=== PATIENT | male | born 1980 | race African-American/Black ===

== ENCOUNTER 2016-12-14 08:09 | Emergency (ER) | payer SELFPAY ==
[~2016-12-14] VITALS: Ht 170.2 cm; Wt 77.0 kg
[2016-12-14 08:10] VITALS: BP 137/88; PULSE 80; RESP 18; TEMP 97.5; O2SAT 100
[2016-12-14] MEDS ORDERED: RISP4TAB41 PO (08:54)
--- NOTE | 2016-12-14 09:06 | PD ---
HPI Chief Complaint: Medication Refill Request Time Seen by Provider: 09:06 Travel History International Travel<30 days: No Contact w/Intl Traveler<30days: No Traveled to known affect area: No History of Present Illness HPI 36-year-old male with a history of schizophrenia presents to the emergency department requesting a medication refill of Risperdal and for psychiatric resources. The patient states that he got off of a [employer] bus today from [facility]. States that in [place] he was receiving Risperdal injections once a month for schizophrenia. States that he has not received his Risperdal in 2 months. He was hoping that we can give him an injection of his Risperdal today. He denies any auditory or visual hallucinations. Denies suicidal or homicidal ideations. He is also here requesting information to get in touch with Evan [facility] to be able to set up outpatient follow-up. He denies any medical complaints. History Past Medical Histgory Narrative Medical Schizophrenia Social History Alcohol Use: No Tobacco Use: Yes Allergies-Medications (Allergen,Severity, Reaction): Coded Allergies: No Known Allergies (Unverified , 12/14/16) Reported Meds & Prescriptions Reported Meds & Active Scripts Active Reported Risperdal (Risperidone) 4 Mg Tab 5 Mg PO DAILY Review of Systems Except as stated in HPI: all other systems reviewed are Neg Physical Exam Narrative GENERAL: Well-nourished and well-developed pleasant male patient in no acute distress who is nontoxic appearing. SKIN: Warm and dry. HEAD: Normocephalic and atraumatic. EYES: No injection, drainage, or hyphema noted. PERRLA. EOMI. ENT: No nasal drainage noted. Oropharynx is clear. NECK: Supple and the trachea is midline. CARDIOVASCULAR: Regular rate and rhythm. RESPIRATORY: Breath sounds are equal bilaterally with no accessory muscle use, wheezing, rhonchi, or crackles. NEUROLOGICAL: Awake, alert, and oriented. Normal speech and gait. Cranial nerves are grossly intact. Data Data Last Documented VS Vital Signs Date Time Temp Pulse Resp B/P Pulse Ox O2 Delivery O2 Flow Rate FiO2 12/14/16 08:10 97.5 80 18 137/88 100 Room Air MDM Medical Screen Exam Complete: Yes Emergency Medical Condition: No Differential Diagnosis Schizophrenia versus medication refill versus medical screening exam Narrative Course 36-year-old male with a history of schizophrenia presents to the emergency department requesting a refill of Risperdal and for resources to [facility]. Patient is afebrile, vital signs are stable. Physical examination is unremarkable. No suicidal or homicidal ideations. There is no urgent or emergent intervention necessary at this time. [facility] and gave this to the patient. I discussed with them that I will not refill his psychiatric medications from the emergency department. A medical screening exam was performed: At the time of evaluation the presenting medical condition was determined not to be of an emergent nature. Patient was given options for additional community resources from which to obtain care. The Patient Has Been advised to seek medical attention for their presenting complaint. The patient has been advised to return to the ER at any time if an emergent condition develops. Primary Impression: Encounter for medical screening examination Disposition: EDGO-ED USE ONLY Condition: Stable Sindhu Moses Dec 14, 2016 09:06
--- NOTE | 2016-12-22 14:51 | PD.CONS ---
Provisional Diagnosis Admission Date [place] I. Major depressive disorder, recurrent, without psychosis [place] II. Deferred [place] III. Chest pain [place] IV. Lack of family and social support [place] V. 55 History of Present Illness Service Psychiatry Consult Requested By Primary Care Physician No Primary Care Physician HPI The patient is a 36-year-old man, homeless, single, unemployed , who recently moved to [place] from [place], with past psychiatric history of depression, multiple psychiatric hospitalizations, last hospitalization was 2 weeks ago and [facility] act, he has been on Risperdal 1 mg twice a day prescribing that institution, he has been seen in the ER a few times now for medication refill, he doesn't have any previous suicide attempts, medical history of hepatitis B and depression who presented with chest pain. The patient states that he took Risperdal as prescribed for him at [facility] for the first time last night. He believes that he began experiencing side effects from the medication including chest pain and suicidal thoughts. He states shortly after taking the pill he began having chest pain for a few hours after taking the medication. He describes the pain as "a little pressure". Patient was now seen and cleared by cardiology. He was consulted to psychiatry due to suicidal ideation, he was not Mariano acted he wanted to be evaluated by psychiatry voluntarily. On psychiatric evaluation today patient was found calm and cooperative and pleasant. He says that he has been doing okay, was a little scared yesterday with his chest pain, but today feels optimally. He denies depressive symptoms, he denies anhedonia, he denies hopelessness, he denies helplessness, he denies suicidal or homicidal ideation. Patient says that he is recently moved to [place], he came to the state "because [place] was too cold", he has been looking for a job and looking to settle in the city. He was hospitalized in a store management and about 2 weeks ago for 2 days due to depressive symptoms. He was discharged with an outpatient appointment which he has been compliant with, he was discharged on Risperdal 1 mg twice a day. At this moment the patient denies anxiety, denies perceptual disturbances , denies visual and auditory hallucinations. Patient is fully oriented 3. He reports the use of marijuana, 2 or 2 times per week, denies use of alcohol denies use of other illicit drugs. Review of Systems Eyes: DENIES: Blurred vision, Diplopia, Eye inflammation, Eye pain, Vision loss , Photosensitivity, Double Vision Ears, nose, mouth, throat: DENIES: Tinnitus, Hearing loss, Vertigo, Nasal discharge, Oral lesions, Throat pain, Hoarseness, Ear Pain, Running Nose, Epistaxis, Sinus Pain, Toothache, Odynophagia Respiratory: DENIES: Apneas, Cough, Snoring, Wheezing, Hemoptysis, Sputum production, Shortness of breath Cardiovascular: DENIES: Chest pain, Palpitations, Syncope, Dyspnea on Exertion , PND, Lower Extremity Edema, Orthopnea, Claudication Gastrointestinal: DENIES: Abdominal pain, Black stools, Bloody stools, Constipation, Diarrhea, Nausea, Vomiting, Difficulty Swallowing, Anorexia Musculoskeletal: DENIES: Joint pain, Muscle aches, Stiffness, Joint Swelling, Back pain, Neck pain Integumentary: DENIES: Abnormal pigmentation, Nail changes, Pruritus, Rash Hematologic/lymphatic: DENIES: Bruising, Lymphadenopathy Immunologic/allergic: DENIES: Eczema, Urticaria Neurologic: DENIES: Abnormal gait, Headache, Localized weakness, Paresthesias, Seizures, Speech Problems, Tremor, Poor Balance Psychiatric: DENIES: Anxiety, Confusion, Mood changes, Depression, Hallucinations, Agitation, Suicidal Ideation, Homicidal Ideation, Delusions Past Family Social History Coded Allergies: No Known Allergies (Unverified , 12/14/16) Reported Medications Risperidone (Risperdal)4 Mg Tab5 Mg PO DAILY #30 TAB Ref 0 12/14/16 Family History He denies Social History Patient was born and raised in [place], he just recently moved to [place] where he came from [place], he is homeless, single, unemployed, his highest level of education is seventh grade. Mental Status Examination Appearance man, with visible tattoos in his face, he looks younger for his stated age, poor hygiene, malodorous, calm, cooperative and pleasant Speech: Unremarkable Memory: Unremarkable Thought Process: Logical Thought Content: Unremarkable Hallucination Type: None Suicidal Ideation: No Previous Suicide Attempts: No Homicidal Ideation: No Previous Homicide Attempts: No Judgement: WNL Affect: Good Mood: Appropriate Motor Activity: Normal gait Assessment & Plan Problem List: (1) Adjustment disorder with depressed mood Assessment & Plan: At the moment of the psychiatric evaluation the patient does not present any objective or subjective symptomatology of depression, anxiety, chiki, perceptual disturbances. Patient is calm, cooperative pleasant , with a good sense of humor, logical coherent and relevant. He denies suicidal or homicidal ideation, he denies visual and auditory hallucinations. No gross cognitive impairment observed. Patient does not meet criteria for psychiatric admission at this moment. He can continue his psychiatric care as an outpatient is [facility]. Continue his Risperdal 1 mg twice a day as was prescribing outpatient. Support, motivation and psychoeducation provided. Consult appreciated. ICD Code: F43.21 Assessment & Plan Estimated LOS: Barrie Lang MD Dec 22, 2016 14:51
== END 2016-12-14 09:34 | disposition left against medical advice (07) ==
LOC: NEPB 08:09
DX: F20.9 Schizophrenia, unspecified (principal); Z72.0 Tobacco use; Z76.0 Encounter for issue of repeat prescription
CPT/HCPCS: 99281

== ENCOUNTER 2016-12-15 11:55 | Emergency (ER) | payer SELFPAY ==
[~2016-12-15] VITALS: Ht 167.6 cm; Wt 70.0 kg
[~2016-12-15 11:55] MED LIST: RISP4TAB41 PO
[2016-12-15 11:58] VITALS: BP 134/86; PULSE 70; RESP 16; TEMP 98.1; O2SAT 100
--- NOTE | 2016-12-15 16:14 | PD ---
HPI Chief Complaint: Psychiatric Symptoms Time Seen by Provider: 16:11 Travel History International Travel<30 days: No Contact w/Intl Traveler<30days: No Traveled to known affect area: No History of Present Illness HPI 36-year-old Afro-[place] male coming in with suicidal ideation with no specific plan. Patient states she's been off his Risperdal 5 mg for approximately 2 months. Patient states his grandmother recently he is having suicidal thoughts. Tearful and obviously scared. He states no pain or other medical issues at this time. He has no known drug allergies. [facility] Social History Alcohol Use: No Tobacco Use: Yes Substance Use: No (patient denies.) Allergies-Medications (Allergen,Severity, Reaction): Coded Allergies: No Known Allergies (Unverified , 12/14/16) Reported Meds & Prescriptions Reported Meds & Active Scripts Active Reported Risperdal (Risperidone) 4 Mg Tab 5 Mg PO DAILY Review of Systems Except as stated in HPI: all other systems reviewed are Neg General / Constitutional: No: Fever Eyes: No: Visual changes HENT: No: Headaches Cardiovascular: No: Chest Pain or Discomfort Respiratory: No: Shortness of Breath Gastrointestinal: No: Abdominal Pain Genitourinary: No: Dysuria Musculoskeletal: No: Pain Skin: No Rash Neurologic: No: Weakness Psychiatric: Positive: Depression, Suicidal Ideations, No: Anxiety, Disorder of Thought, Mood Disorder, Substance Abuse, Homicidal Ideation Endocrine: No: Polydipsia Hematologic/Lymphatic: No: Easy Bruising Physical Exam Narrative GENERAL: Patient appears in moderate distress. SKIN: Warm and dry. Normal color. Normal turgor. HEAD: Atraumatic. Normocephalic. Nontender. EYES: Pupils equal and round. No scleral icterus. No injection or drainage. ENT: No nasal bleeding or discharge. Mucous membranes pink and moist. No dental injury or itchy. Pharynx is normal. Airway is patent. NECK: Trachea midline. Supple nontender. CARDIOVASCULAR: Regular rate and rhythm. RESPIRATORY: No accessory muscle use. Clear to auscultation. Breath sounds equal bilaterally. GASTROINTESTINAL: Abdomen soft, non-tender, nondistended. Hepatic and splenic margins not palpable. MUSCULOSKELETAL: Extremities without clubbing, cyanosis, or edema. No obvious deformities. NEUROLOGICAL: Awake and alert. No obvious cranial nerve deficits. Motor grossly within normal limits. Five out of 5 muscle strength in the arms and legs. Normal speech. PSYCHIATRIC: Patient appears depressed and tearful. He is acting appropriate; insight and judgment normal. Data Data Last Documented VS Vital Signs Date Time Temp Pulse Resp B/P Pulse Ox O2 Delivery O2 Flow Rate FiO2 12/15/16 11:58 98.1 70 16 134/86 100 Room Air Orders Complete Blood Count With Diff (12/15/16 16:14) Comprehensive Metabolic Panel (12/15/16 16:14) Drug Screen, Random Urine (12/15/16 16:14) Alcohol (Ethanol) (12/15/16 16:14) Psych Screen (12/15/16 16:14) Diet Regular Basic (12/15/16 Dinner) MDM Medical Decision Making Medical Screen Exam Complete: Yes Emergency Medical Condition: Yes Differential Diagnosis Depression. Suicidal ideation. Mariano act. Narrative Course Patient is felt to be a danger to himself, and will be Mariano acted. Patient is medically stable in appearance by exam. Labs ordered per protocol including CBC, CMP, urine drug screen, and serum alcohol level. Medial is ordered for the patient. Diagnosis Primary Impression: Suicidal ideation Additional Impression: Medical clearance for psychiatric admission Condition: Stable Rudolph Hernandez Dec 15, 2016 16:14
[2016-12-15 18:30] VITALS: BP 131/75
[2016-12-15 19:03] LABS: AUTOMATED NEUTROPHIL # 3.3 TH/MM3 (1.8-7.7); BASOPHIL % 0.2 % (0.0-2.0); EOSINOPHIL # 0.1 TH/MM3 (0-0.4); EOSINOPHIL % 1.3 % (0.0-4.0); HEMATOCRIT 34.6 % (39.0-51.0); HEMO FLAGS DIFF FINAL; LYMPH % 30.8 % (9.0-44.0); LYMPHOCYTE # 1.7 TH/MM3 (1.0-4.8); MEAN CELL VOLUME 83.5 FL (80.0-100.0); MEAN CORPUSCULAR HEMOGLOBIN 28.5 PG (27.0-34.0); MEAN CORPUSCULAR HGB CONC 34.1 % (32.0-36.0); MONO % 9.3 % (0.0-8.0); NEUT % 58.4 % (16.0-70.0); PLATELET COUNT 244 TH/MM3 (150-450); RED BLOOD COUNT 4.14 MIL/MM3 (4.50-5.90); RED CELL DISTRIBUTION WIDTH 14.4 % (11.6-17.2); WHITE BLOOD COUNT 5.6 TH/MM3 (4.0-11.0)
[2016-12-15 19:20] LABS: AMPHETAMINE, URINE NEG (NEG); BARBITURATES, URINE NEG (NEG); COCAINE, URINE POS (NEG)
[2016-12-15 19:29] LABS: ANION GAP 8 MEQ/L (5-15); AST (GOT) 42 U/L (15-37); BICARBONATE 25.6 MEQ/L (21.0-32.0); BLOOD UREA NITROGEN 12 MG/DL (7-18); CHLORIDE 102 MEQ/L (98-107); GLOMERULAR FILTRATION RATE 124 ML/MIN (>89); POTASSIUM 4.2 MEQ/L (3.5-5.1); SODIUM (NA) 136 MEQ/L (136-145)
[2016-12-15 19:34] LABS: ALKALINE PHOSPHATASE 77 U/L (45-117); ALT (GPT) 38 U/L (12-78); TOTAL BILIRUBIN ADULT 0.5 MG/DL (0.2-1.0)
== END 2016-12-15 21:06 ==
LOC: NEPB 11:55 → NEPJ 21:06
DX: Z02.89 Encounter for other administrative examinations (principal); R45.851 Suicidal ideations; Z72.0 Tobacco use
CPT/HCPCS: 80053; 80307; 80320; 85025; 99285

== ENCOUNTER 2016-12-20 19:54 | Observation (INO) | payer MEDICAID ==
[~2016-12-20] VITALS: Ht 167.6 cm; Wt 70.7 kg
[2016-12-20 19:59] VITALS: BP 130/76; PULSE 84; RESP 20; TEMP 97.2; O2SAT 98
[2016-12-20 20:07] VITALS: RESP 20
[2016-12-20] MEDS ORDERED: ASPIRIN 81 MG CHEW TAB PO ONE (20:15)
[2016-12-20] MEDS ORDERED: SODIUM CHLORIDE 0.9% FLUSH 5 ML FLUSH IVF PRN (20:15)
--- NOTE | 2016-12-20 20:17 | PD ---
HPI Chief Complaint: Chest Pain Time Seen by Provider: 20:00 Travel History International Travel<30 days: No Contact w/Intl Traveler<30days: No Traveled to known affect area: No History of Present Illness HPI This is a 36 year old male who presents to the emergency department with chest pain, starting as a dull ache in the middle of his chest, radiating down to the left side of his chest associated with some shortness of breath and nausea, constant for several hours. Pain is worse with deep breaths. He denies any diaphoresis. He says this started immediately after taking his risperdal. He also reports some diarrhea and abdominal discomfort over the past several days. the patient was here several days ago with suicidal thoughts and was sent to [facility]. He says every time he has taken the Risperdal he hasn't felt right. Denies cocaine use. [facility] Past Medical History Narrative Medical Hepatitis B Uses marijuana Diminished Hearing: No Hepatitis: Yes (b) Past Surgical History Surgical History: No Previous Surgery Social History Alcohol Use: No Tobacco Use: Yes Substance Use: No (marijuana) Allergies-Medications (Allergen,Severity, Reaction): Coded Allergies: No Known Allergies (Unverified , 12/14/16) Reported Meds & Prescriptions Reported Meds & Active Scripts Active Reported Risperdal (Risperidone) 4 Mg Tab 5 Mg PO DAILY Review of Systems Except as stated in HPI: all other systems reviewed are Neg Physical Exam Narrative GENERAL:Well appearing, no acute distress SKIN: Warm and dry. HEAD: Atraumatic. Normocephalic. EYES: Pupils equal and round. No injection or drainage. ENT: Moist mucous membranes NECK: Trachea midline. CARDIOVASCULAR: Regular rate and rhythm. No murmur appreciated. RESPIRATORY: Clear to auscultation. Breath sounds equal bilaterally. GASTROINTESTINAL: Abdomen soft, non-tender, nondistended. MUSCULOSKELETAL: No obvious deformities. NEUROLOGICAL: Awake and alert. No obvious cranial nerve deficits. Moving all extremities. PSYCHIATRIC: Appropriate mood and affect; insight and judgment normal. Data Data Last Documented VS Vital Signs Date Time Temp Pulse Resp B/P Pulse Ox O2 Delivery O2 Flow Rate FiO2 12/20/16 20:37 122/79 120/71 12/20/16 20:07 100 Nasal Cannula 2 12/20/16 20:07 20 12/20/16 19:59 97.2 84 Orders Electrocardiogram (12/20/16 20:04) Complete Blood Count With Diff (12/20/16 20:04) Comprehensive Metabolic Panel (12/20/16 20:04) Magnesium (Mg) (12/20/16 20:04) Prothrombin Time / Inr (Pt) (12/20/16 20:04) Act Partial Throm Time (Ptt) (12/20/16 20:04) Troponin I (12/20/16 20:04) Chest, Single Ap (12/20/16 20:04) Ecg Monitoring (12/20/16 20:04) Bilateral Bp Monitoring (12/20/16 20:04) Iv Access Insert/Monitor (12/20/16 20:04) Oximetry (12/20/16 20:04) Oxygen Administration (12/20/16 20:04) Aspirin Chew (Aspirin Chew) (12/20/16 20:15) Sodium Chloride 0.9% Flush (Ns Flush) (12/20/16 20:15) Alcohol (Ethanol) (12/20/16 20:04) Drug Screen, Random Urine (12/20/16 20:04) ^ Sitter (12/20/16 20:27) Labs Laboratory Tests Test 12/20/16 20:10 White Blood Count 6.6 TH/MM3 Red Blood Count 3.79 MIL/MM3 Hemoglobin 11.0 GM/DL Hematocrit 31.8 % Mean Corpuscular Volume 83.9 FL Mean Corpuscular Hemoglobin 29.0 PG Mean Corpuscular Hemoglobin 34.5 % Concent Red Cell Distribution Width 13.8 % Platelet Count 344 TH/MM3 Mean Platelet Volume 8.0 FL Neutrophils (%) (Auto) 57.5 % Lymphocytes (%) (Auto) 28.7 % Monocytes (%) (Auto) 12.2 % Eosinophils (%) (Auto) 1.3 % Basophils (%) (Auto) 0.3 % Neutrophils # (Auto) 3.8 TH/MM3 Lymphocytes # (Auto) 1.9 TH/MM3 Monocytes # (Auto) 0.8 TH/MM3 Eosinophils # (Auto) 0.1 TH/MM3 Basophils # (Auto) 0.0 TH/MM3 CBC Comment DIFF FINAL Differential Comment Prothrombin Time 10.9 SEC Prothromb Time International 1.0 RATIO Ratio Activated Partial 26.1 SEC Thromboplast Time Sodium Level 140 MEQ/L Potassium Level 3.7 MEQ/L Chloride Level 107 MEQ/L Carbon Dioxide Level 26.9 MEQ/L Anion Gap 6 MEQ/L Blood Urea Nitrogen 11 MG/DL Creatinine 1.17 MG/DL Estimat Glomerular Filtration 86 ML/MIN Rate Random Glucose 85 MG/DL Calcium Level 8.4 MG/DL Magnesium Level 1.9 MG/DL Total Bilirubin 0.2 MG/DL Aspartate Amino Transf 21 U/L (AST/SGOT) Alanine Aminotransferase 30 U/L (ALT/SGPT) Alkaline Phosphatase 79 U/L Troponin I LESS THAN 0.02 NG/ML Total Protein 7.5 GM/DL Albumin 3.6 GM/DL Ethyl Alcohol Level 7 MG/DL [facility] Medical Decision Making Medical Screen Exam Complete: Yes Emergency Medical Condition: Yes Interpretation(s) Afebrile, no tachycardia, normotensive Mild anemia Monocytic shift troponin normal EKG: Normal sinus rhythm, isolated ST elevation in lead V3 with biphasic T-wave and J-point elevation, marked amplitude in the lateral leads consistent with LVH , deep T-wave inversion in V4, no reciprocal ischemic changes Differential Diagnosis Cocaine chest pain, acute coronary syndrome, pericarditis, cardiomyopathy, depression substance induced mood disorder Narrative Course This is a 36-year-old male who presents the emergency department reporting chest pain that started today after he took his Risperdal. Patient's description of his chest pain is fairly benign. It's mostly pleuritic in its absent here in the emergency department. He was placed on a monitor and an IV was established. EKG demonstrates significant abnormality with LVH and an abnormal ST segment in V3 with abnormal T waves in V3 and V4. We don't have any prior EKGs. Labs were obtained which were all reassuring. I don't think the patient's EKG meet STEMI criteria and additionally his clinical history is not consistent with a myocardial infarction however his EKG concerns me for underlying cardiomyopathy. I think it's reasonable to continue serial troponins on the patient and consider an echo as well as psychiatric consultation as he was just recently discharged from [facility] and continues to report hallucinations and suicidal thoughts. Diagnosis Primary Impression: Chest pain Qualified Code: R07.9 - Chest pain, unspecified type Additional Impression: Depression Qualified Code: F32.9 - Depression, unspecified depression type Admitting Information Admitting Physician Requests: Aisha Mckinnon MD Dec 20, 2016 20:17
[2016-12-20 20:37] VITALS: BP_SYST 120; BP_SYST 122; BP_DIAS 71; BP_DIAS 79
[2016-12-20 21:02] LABS: APTT (PATIENT) 26.1 SEC (24.3-30.1); PROTHROMBIN TIME - PATIENT 10.9 SEC (9.8-11.6)
[2016-12-20 21:11] LABS: AUTOMATED NEUTROPHIL # 3.8 TH/MM3 (1.8-7.7); BASOPHIL % 0.3 % (0.0-2.0); EOSINOPHIL # 0.1 TH/MM3 (0-0.4); EOSINOPHIL % 1.3 % (0.0-4.0); HEMATOCRIT 31.8 % (39.0-51.0); HEMO FLAGS DIFF FINAL; LYMPH % 28.7 % (9.0-44.0); LYMPHOCYTE # 1.9 TH/MM3 (1.0-4.8); MEAN CELL VOLUME 83.9 FL (80.0-100.0); MEAN CORPUSCULAR HGB CONC 34.5 % (32.0-36.0); MONO % 12.2 % (0.0-8.0); NEUT % 57.5 % (16.0-70.0); PLATELET COUNT 344 TH/MM3 (150-450); RED BLOOD COUNT 3.79 MIL/MM3 (4.50-5.90); RED CELL DISTRIBUTION WIDTH 13.8 % (11.6-17.2); WHITE BLOOD COUNT 6.6 TH/MM3 (4.0-11.0)
[2016-12-20 21:39] LABS: ALKALINE PHOSPHATASE 79 U/L (45-117); ALT (GPT) 30 U/L (12-78); ANION GAP 6 MEQ/L (5-15); AST (GOT) 21 U/L (15-37); BICARBONATE 26.9 MEQ/L (21.0-32.0); BLOOD UREA NITROGEN 11 MG/DL (7-18); CHLORIDE 107 MEQ/L (98-107); GLOMERULAR FILTRATION RATE 86 ML/MIN (>89); MAGNESIUM 1.9 MG/DL (1.5-2.5); POTASSIUM 3.7 MEQ/L (3.5-5.1); SODIUM (NA) 140 MEQ/L (136-145); TOTAL BILIRUBIN ADULT 0.2 MG/DL (0.2-1.0)
--- NOTE | 2016-12-20 21:47 | RADRPT ---
EXAM DATE/TIME: 12/20/2016 18:39 [place] COMPARISON: No previous studies available for comparison. INDICATIONS : Chest pain starting today MEDICAL HISTORY : None. SURGICAL HISTORY : None. ENCOUNTER: Initial ACUITY: 1 day PAIN SCORE: 10/10 LOCATION: Center of chest FINDINGS: A single view of the chest demonstrates the lungs to be symmetrically aerated without evidence of mas s, infiltrate or effusion. The cardiomediastinal contours are unremarkable. Osseous structures are intact. CONCLUSION: 1. No active disease. Calcified granulomata in the lungs. Magdiel Sauceda MD on December 20, 2016 at 21:45 Board Certified Radiologist. This report was verified electronically.
[2016-12-20 23:15] VITALS: BP 105/59; PULSE 76; RESP 16
[2016-12-21] VITALS (7 sets, daily range): BP systolic 110–129; BP diastolic 55–97; PULSE 51–71; RESP 16–20; TEMP 97.7–98.2; O2SAT 97–100
[2016-12-21] MEDS ORDERED: ACETAMINOPHEN 325 MG TAB PO PRN
[2016-12-21] MEDS ORDERED: SENNOSIDES 8.6 MG TAB PO PRN
[2016-12-21] MEDS ORDERED: ONDANSETRON HCL 4 MG/2 ML VIAL IVP PRN
[2016-12-21] MEDS ORDERED: NALOXONE HCL 0.4 MG/ML AMP IV PRN
[2016-12-21] MEDS ORDERED: SODIUM CHLORIDE 0.9% FLUSH 5 ML FLUSH FLUSH PRN
[2016-12-21 02:22] LABS: CREATINE KINASE 201 U/L (39-308)
[2016-12-21] MEDS: SODIUM CHLOR 0.9% 1000 ML INJ 1,000 ML IV SCH ×3 (03:29→14:06)
[2016-12-21] MEDS ORDERED: ACETAMINOPHEN 500 MG CPLT PO PRN (03:30)
[2016-12-21] MEDS ORDERED: MORPHINE SULFATE 4 MG/ML INJ IV PRN (03:30)
[2016-12-21] MEDS ORDERED: ALPRAZolam 0.25 MG TAB PO PRN (03:30)
[2016-12-21] MEDS ORDERED: ACETAMINOPHEN/HYDROcodone 325 MG/7.5 MG TAB PO PRN (03:30)
[2016-12-21] MEDS ORDERED: SODIUM CHLORIDE 0.9% FLUSH 5 ML FLUSH IV PRN (03:30)
[2016-12-21] MEDS ORDERED: MORPHINE SULFATE 8 MG/ML INJ IV PUSH PRN (03:30)
[2016-12-21 04:42] LABS: AUTOMATED NEUTROPHIL # 3.4 TH/MM3 (1.8-7.7); BASOPHIL % 0.3 % (0.0-2.0); EOSINOPHIL # 0.1 TH/MM3 (0-0.4); EOSINOPHIL % 1.6 % (0.0-4.0); HEMATOCRIT 32.8 % (39.0-51.0); HEMO FLAGS DIFF FINAL; LYMPH % 32.8 % (9.0-44.0); LYMPHOCYTE # 2.2 TH/MM3 (1.0-4.8); MEAN CELL VOLUME 84.3 FL (80.0-100.0); MEAN CORPUSCULAR HEMOGLOBIN 28.8 PG (27.0-34.0); MEAN CORPUSCULAR HGB CONC 34.2 % (32.0-36.0); MONO % 14.5 % (0.0-8.0); NEUT % 50.8 % (16.0-70.0); PLATELET COUNT 326 TH/MM3 (150-450); RED BLOOD COUNT 3.89 MIL/MM3 (4.50-5.90); WHITE BLOOD COUNT 6.6 TH/MM3 (4.0-11.0)
[2016-12-21 04:50] LABS: ANION GAP 6 MEQ/L (5-15); BICARBONATE 26.8 MEQ/L (21.0-32.0); BLOOD UREA NITROGEN 10 MG/DL (7-18); CHLORIDE 108 MEQ/L (98-107); GLOMERULAR FILTRATION RATE 109 ML/MIN (>89); POTASSIUM 3.9 MEQ/L (3.5-5.1); SODIUM (NA) 141 MEQ/L (136-145)
--- NOTE | 2016-12-21 04:54 | EKG ---
Date Performed: 12/20/2016 Time Performed: 19:59:19 PTAGE: 36 years EKG: Sinus rhythm WITH SHORT RI INTERVAL VOLTAGE CRITERIA FOR LVH Nonspecific T wave changes NO PREVIOUS TRACING DOCTOR: Jung Leiva Interpretating Date/Time 12/21/2016 04:53:46
[2016-12-21] MEDS: HEPARIN SODIUM - SQ 10,000 UNITS/ML VIAL SQ SCH ×2 (06:10→14:05)
--- NOTE | 2016-12-21 08:07 | EKG ---
Date Performed: 12/21/2016 Time Performed: 02:51:15 PTAGE: 36 years EKG: SINUS BRADYCARDIA POSSIBLE LEFT VENTRICULAR HYPERTROPHY Possible early repolarization Nonsp ecific ST-T wave changes ABNORMAL ECG NO SIGNIFICANT CHANGE FROM PRIOR ELECTROCARDIOGRAM. PREVIOUS TRACING : 12/20/2016 20.32 DOCTOR: Jung Leiva Interpretating Date/Time 12/21/2016 08:06:28
--- NOTE | 2016-12-21 08:17 | EKG ---
Date Performed: 12/20/2016 Time Performed: 20:32:53 PTAGE: 36 years EKG: Sinus rhythm VOLTAGE CRITERIA FOR LVH Possible early repolarization Nonspecific ST-T wave changes ABNORMAL ECG NO SIGNIFICANT CHANGE FROM PRIOR ELECTROCARDIOGRAM. PREVIOUS TRACING : 12/20/2016 19.59 DOCTOR: Jung Leiva Interpretating Date/Time 12/21/2016 08:16:22
[2016-12-21] MEDS: SODIUM CHLORIDE 0.9% FLUSH 5 ML FLUSH IV SCH ×2 (09:00→21:00)
[2016-12-21] MEDS ORDERED: SODIUM CHLORIDE 0.9% FLUSH 5 ML FLUSH FLUSH SCH (09:00)
[2016-12-21] MEDS ORDERED: ENOXAPARIN SODIUM 40 MG/0.4 ML SYRINGE SQ SCH (09:00)
[2016-12-21 10:06] LABS: AMPHETAMINE, URINE NEG (NEG); BARBITURATES, URINE NEG (NEG); COCAINE, URINE POS (NEG)
[2016-12-21] MEDS: ASPIRIN 325 MG TAB PO SCH (10:34)
[2016-12-21] MEDS: PANTOPRAZOLE SOD 40 MG DELAYED RELEASE TAB PO SCH (10:34)
[2016-12-21 11:06] LABS: CREATINE KINASE 172 U/L (39-308)
--- NOTE | 2016-12-21 13:38 | EKG ---
Date Performed: 12/21/2016 Time Performed: 10:29:36 PTAGE: 36 years EKG: SINUS BRADYCARDIA VOLTAGE CRITERIA FOR LVH Probable early repolarization ABNORMAL ECG NO SI GNIFICANT CHANGE FROM PRIOR ELECTROCARDIOGRAM. PREVIOUS TRACING : 12/21/2016 02.51 DOCTOR: Jung Leiva Interpretating Date/Time 12/21/2016 13:36:56
--- NOTE | 2016-12-21 14:51 | HHI.HP ---
[facility] Service [facility] Primary Care Physician No Primary Care Physician Admission Diagnosis chest pain,depression Diagnoses: Chief Complaint: Chest pain Travel History International Travel<30 Days: No Contact w/Intl Traveler <30 Da: No Traveled to Known Affected Are: No History of Present Illness 36-year-old male with past medical history of hepatitis B and depression who presented with chest pain. The patient states that he took Risperdal as prescribed for him at [facility] for the first time last night. He believes that he began experiencing side effects from the medication including chest pain and suicidal thoughts. He states shortly after taking the pill he began having chest pain for a few hours after taking the medication. He describes the pain as "a little pressure". He had associated shortness of breath. The pain did not radiate and he did not have any nausea or diaphoresis. He states the pain resolved spontaneously and has not recurred. He does continue to feel suicidal thoughts. He is agreeable to stay to talk to a psychiatrist. He denies any vomiting, fever, chills, cough, abdominal pain. Review of Systems Other 10 point review of systems performed and was negative except as stated in history of present illness Past Family Social History Past Medical History Hepatitis B Depression Past Surgical History None Reported Medications Risperdal Allergies: Coded Allergies: No Known Allergies (Unverified , 12/14/16) Active Ordered Medications Current Medications Medications (Trade) Dose Ordered Sig/Alex Route Start Time Stop Time Status Last Admin (Tylenol) 650 mg Q4H PRN PO 12/21/16 00:00 (Zofran Inj) 4 mg Q6H PRN IVP 12/21/16 00:00 (Senokot) 17.2 mg Q12H PRN PO 12/21/16 00:00 (Lovenox Inj) 40 mg Q24H SQ 12/21/16 09:00 12/21/16 10:34 Naloxone HCl 0.4 mg 0.4 mg UNSCH PRN IV 12/21/16 00:00 (NS 1000 ml Inj) 1,000 ml @ 100 mls/hr Q10H IV 12/21/16 03:29 12/21/16 14:06 (NS Flush) 2 ml BID IV 12/21/16 09:00 (NS Flush) 2 ml UNSCH PRN IV 12/21/16 03:30 (Aspirin) 325 mg DAILY PO 12/21/16 09:00 12/21/16 10:34 (Tylenol) 500 mg Q4H PRN PO 12/21/16 03:30 ([place] 7.5-325 Mg) 1 tab Q4H PRN PO 12/21/16 03:30 (Morphine Inj) 2 mg Q5M PRN IV 12/21/16 03:30 (Morphine Inj) 5 mg Q10M PRN IV PUSH 12/21/16 03:30 (Protonix) 40 mg DAILY PO 12/21/16 09:00 12/21/16 10:34 (Xanax) 0.25 mg TID PRN PO 12/21/16 03:30 (Heparin Inj) 5,000 units Q8HR SQ 12/21/16 06:00 12/21/16 14:05 Family History Reviewed, no family history pertinent current chief complaint Social History Smokes about 5 cigarettes daily Denies any alcohol use Smokes marijuana about twice a week Physical Exam Vital Signs Vital Signs Date Time Temp Pulse Resp B/P Pulse Ox O2 Delivery O2 Flow Rate FiO2 12/21/16 10:34 55 18 117/75 97 Nasal Cannula 2 12/21/16 07:35 100 12/21/16 07:33 51 16 122/56 100 12/21/16 04:00 53 16 127/97 97 Room Air 12/20/16 23:15 76 16 105/59 Room Air 12/20/16 20:37 122/79 120/71 12/20/16 20:07 100 Nasal Cannula 2 12/20/16 20:07 20 12/20/16 19:59 97.2 84 20 130/76 98 Physical Exam GENERAL: Well-developed well-nourished. In no acute distress. SKIN: Warm and dry. No lesions noted. HEENT: Normocephalic. Pupils equal and round. Mucous membranes pink and moist. CARDIOVASCULAR: Regular rate and rhythm. No murmur appreciated. RESPIRATORY: No accessory muscle use. Clear to auscultation. Breath sounds equal bilaterally. GASTROINTESTINAL: Abdomen soft, non-tender, nondistended. Bowel sounds x4. MUSCULOSKELETAL: No obvious deformities. No clubbing or cyanosis. No edema. NEUROLOGICAL: Awake and alert. No focal neurological deficits. Moves upper and lower extremities spontaneously. Normal speech. PSYCHIATRIC: Appropriate mood and affect; insight and judgment normal. Expresses SI. Laboratory Laboratory Tests Test 12/20/16 12/21/16 12/21/16 12/21/16 20:10 01:55 04:23 09:30 White Blood Count 6.6 6.6 Red Blood Count 3.79 3.89 Hemoglobin 11.0 11.2 Hematocrit 31.8 32.8 Mean Corpuscular Volume 83.9 84.3 Mean Corpuscular Hemoglobin 29.0 28.8 Mean Corpuscular Hemoglobin 34.5 34.2 Concent Red Cell Distribution Width 13.8 14.0 Platelet Count 344 326 Mean Platelet Volume 8.0 7.7 Neutrophils (%) (Auto) 57.5 50.8 Lymphocytes (%) (Auto) 28.7 32.8 Monocytes (%) (Auto) 12.2 14.5 Eosinophils (%) (Auto) 1.3 1.6 Basophils (%) (Auto) 0.3 0.3 Neutrophils # (Auto) 3.8 3.4 Lymphocytes # (Auto) 1.9 2.2 Monocytes # (Auto) 0.8 1.0 Eosinophils # (Auto) 0.1 0.1 Basophils # (Auto) 0.0 0.0 CBC Comment DIFF FINAL DIFF FINAL Differential Comment Prothrombin Time 10.9 Prothromb Time International 1.0 Ratio Activated Partial 26.1 Thromboplast Time Sodium Level 140 141 Potassium Level 3.7 3.9 Chloride Level 107 108 Carbon Dioxide Level 26.9 26.8 Anion Gap 6 6 Blood Urea Nitrogen 11 10 Creatinine 1.17 0.95 Estimat Glomerular Filtration 86 109 Rate Random Glucose 85 93 Calcium Level 8.4 8.6 Magnesium Level 1.9 Total Bilirubin 0.2 Aspartate Amino Transf 21 (AST/SGOT) Alanine Aminotransferase 30 (ALT/SGPT) Alkaline Phosphatase 79 Troponin I LESS THAN 0.02 LESS THAN 0.02 LESS THAN 0.02 Total Protein 7.5 Albumin 3.6 Ethyl Alcohol Level 7 Total Creatine Kinase 201 Urine Opiates Screen NEG Urine Barbiturates Screen NEG Urine Amphetamines Screen NEG Urine Benzodiazepines Screen NEG Urine Cocaine Screen POS Urine Cannabinoids Screen POS Test 12/21/16 12/21/16 09:37 10:26 Total Creatine Kinase 172 Troponin I LESS THAN 0.02 LESS THAN 0.02 Result Diagram: 12/21/16 0423 12/21/163 Imaging Last Impressions Chest X-Ray 12/20/162003 Signed Impressions: Service Date/Time: Tuesday, December 20, 2016 18:39 - CONCLUSION: 1. No active disease. Calcified granulomata in the lungs. Magdiel Sauceda MD Assessment and Plan Problem List: (1) Chest pain ICD Code: R07.9 Status: Acute (2) Depression ICD Code: F32.9 Status: Acute (3) Suicidal ideation ICD Code: R45.851 Status: Acute Assessment and Plan 36-year-old male with past medical history of hepatitis B and depression who presented with chest pain Atypical chest pain: Doubt ACS. Troponin negative 5. EKG personally reviewed , shows LVH and nonspecific ST changes and anterior lateral leads. Possible underlying cardiomyopathy. Check echocardiogram. Consult cardiology. Patient started on aspirin. No beta vannessa with bradycardia. Suicidal ideation: Possible side effects from Risperdal, hold for now. Consult psychiatry. Patient agrees to voluntarily stay for psychiatric evaluation, no need to Mariano act for now, but patient referred to leave prior to psychiatry evaluation would need to reconsider that. DVT prophylaxis: SCDs Written by Dalton Connelly, acting as scribe for Dr. Ruiz on 12/21/16 at 14:49. The documentation accurately reflects the work performed [id number] by me Dr. Ruiz on 12/21/16 at 14:49. Discussed Condition With Patient, ED RN Problem Qualifiers (1) Chest pain: Qualified Code: R07.9 - Chest pain, unspecified type (2) Depression: Qualified Code: F32.9 - Depression, unspecified depression type Dalton Connelly Dec 21, 2016 14:51 Camelia Ruiz MD Dec 21, 2016 15:47
[2016-12-21] MEDS ORDERED: METOPROLOL TARTRATE 5 MG/5 ML VIAL IV PUSH PRN (16:45)
--- NOTE | 2016-12-21 18:09 | MB ---
cc: SHAD MOULTON MD DATE OF CONSULTATION 12/21/15 REASON FOR CONSULTATION Chest pain HISTORY OF PRESENT ILLNESS This is a 36-year-old gentleman who has history hepatitis B and depression who was recently initiated on Risperdal as prescribed from [facility]. He states that he had some reported side effects which consisted of some chest pain. He also to report suicidal ideation. He came into the emergency department and described this chest pressure radiating towards his left arm. Initial electrocardiogram did show some biphasic and inverted T-waves in the anterolateral precordial leads. Subsequent EKGs actually showed normalization with early repolarization. Only medications is Risperdal. He has no other significant cardiac complaints. No history of exertional anginal syncope. PAST MEDICAL HISTORY 1. Depression 2. Hepatitis B MEDICATIONS Risperdal. ALLERGIES None REVIEW OF SYSTEMS 12-point review of systems was performed negative unless otherwise noted in history of present illness. FAMILY HISTORY Denies any family history coronary disease, sudden cardiac . SOCIAL HISTORY Smokes about five cigarettes a day. Denies any alcohol use. Smokes marijuana twice a week. PHYSICAL EXAMINATION VITAL SIGNS: Heart rate 55, blood pressure 117/75 mmHg. GENERAL: Alert and oriented x3 in no acute distress. HEENT: Pupils reactive to light and accommodation. Extraocular movements are intact. No elevation in jugular venous distension. No thyromegaly, no lymphadenopathy, no carotid bruits. LUNGS: Clear to auscultation bilaterally. CARDIOVASCULAR: Regular rate and rhythm without murmurs, rubs or gallops. ABDOMEN: Nontender, nondistended. Good bowel sounds. No hepatosplenomegaly. EXTREMITIES: No clubbing, cyanosis or edema. Good peripheral pulses. NEUROLOGIC: Cranial nerves intact. Motor sensory grossly intact. LABORATORY DATA WBC 6.6, hemoglobin 11.2, platelet count 326. Sodium 141, potassium 3.9, BUN is 10, creatinine 0.95, troponins negative times five. ASSESSMENT 1. Dynamic electrocardiographic changes. 2. Chest pain, PLAN Given the patient's age, the likelihood of traditional obstructive atherosclerotic plaque is very unlikely. He did have a description character of the pain possibly consistent with angina or anginal equivalent. His electrocardiogram also shows some dynamic T-wave changes, V3-V6. He is currently chest pain free. I do not think a nuclear stress test will be terribly helpful, since I doubt it is a fixed obstruction. I would like to do a CTA coronaries. This will help to tell us if there is any atherosclerotic plaque or more importantly if there is any anomalous coronary anatomy. If that is negative, I would assume that it was likely Prinzmetal type angina which may have been exacerbated by his recent addition of Risperdal. The more common side effects is QT prolongation and less so coronary spasm, although it is potentially possible. We will continue to follow along. Troponin have been negative. If CTA of the coronaries is negative, we can treat him conservatively from a cardiac perspective with no further workup necessary. MD LOUISE Fiore/ /4:48 PM /5:50 PM MTDD
[2016-12-22] VITALS: BP 116/67; PULSE 54; RESP 18; TEMP 97.8; O2SAT 97
[2016-12-22 04:00] VITALS: BP 106/58; PULSE 52; RESP 18; TEMP 98; O2SAT 96
[2016-12-22 08:00] VITALS: BP 102/64; PULSE 53; PULSE 59; RESP 20; TEMP 98; O2SAT 98
[2016-12-22] MEDS: PANTOPRAZOLE SOD 40 MG DELAYED RELEASE TAB PO SCH (08:06)
[2016-12-22] MEDS: SODIUM CHLORIDE 0.9% FLUSH 5 ML FLUSH IV SCH ×2 (08:06→21:14)
[2016-12-22] MEDS: ASPIRIN 325 MG TAB PO SCH (08:06)
--- NOTE | 2016-12-22 08:25 | HHI.PR ---
Subjective Remarks Says he did not have any chest pain overnight. No sob. Feels much better. Feels depressed. No n/v/d/c. No headache or palpitations. Objective Vitals Vital Signs Date Time Temp Pulse Resp B/P Pulse Ox O2 Delivery O2 Flow Rate FiO2 12/22/16 04:00 98.0 52 18 106/58 96 12/22/16 00:00 97.8 54 18 116/67 97 12/21/16 22:00 Room Air 12/21/16 22:00 55 12/21/16 20:00 97.7 71 20 129/69 98 12/21/16 16:00 98.2 59 18 110/55 100 12/21/16 15:15 Room Air 12/21/16 15:15 58 12/21/16 10:34 55 18 117/75 97 Nasal Cannula 2 I/O 12/21/16 12/21/16 12/21/16 12/22/16 12/22/16 12/22/16 07:00 15:00 23:00 07:00 15:00 23:00 Intake Total 280 ml 280 ml Output Total 300 ml Balance -20 ml 280 ml Intake Oral 280 ml 280 ml Output Urine Total 300 ml # Voids 1 Result Diagram: 12/21/1642212/21/16422 Imaging Last Impressions Chest X-Ray 12/20/162003 Signed Impressions: Service Date/Time: Tuesday, December 20, 2016 18:39 - CONCLUSION: 1. No active disease. Calcified granulomata in the lungs. Magdiel Sauceda MD Objective Remarks GENERAL: Well-developed well-nourished. In no acute distress. SKIN: Warm and dry. No lesions noted. HEENT: Normocephalic. Pupils equal and round. Mucous membranes pink and moist. CARDIOVASCULAR: Regular rate and rhythm. No murmur appreciated. RESPIRATORY: No accessory muscle use. Clear to auscultation. Breath sounds equal bilaterally. GASTROINTESTINAL: Abdomen soft, non-tender, nondistended. Bowel sounds x4. MUSCULOSKELETAL: No obvious deformities. No clubbing or cyanosis. No edema. NEUROLOGICAL: Awake and alert. No focal neurological deficits. Moves upper and lower extremities spontaneously. Normal speech. PSYCHIATRIC: Appropriate mood and affect; insight and judgment normal. Expresses SI. A/P Problem List: (1) Chest pain ICD Code: R07.9 Status: Acute (2) Depression ICD Code: F32.9 Status: Acute (3) Suicidal ideation ICD Code: R45.851 Status: Acute Assessment and Plan 36-year-old male with past medical history of hepatitis B and depression who presented with chest pain Atypical chest pain: Doubt ACS. Troponin negative 5. EKG personally reviewed , shows LVH and nonspecific ST changes and anterior lateral leads. Possible underlying cardiomyopathy. Check echocardiogram. Consult cardiology. Patient started on aspirin. No beta vannessa with bradycardia. Plan for CTA with coronary arteries. Seen by Dr Neff cardiology appreciate recommendations. If CTA is normal, treat conservatively from cardiac standpoint , patient is at very low risk. Suicidal ideation: Possible side effects from Risperdal, hold for now. Consult psychiatry. Patient agrees to voluntarily stay for psychiatric evaluation, no need to Mariano act for now, but patient referred to leave prior to psychiatry evaluation would need to reconsider that. DVT prophylaxis: SCDs Discussed Condition With Patient, nurse Sitter at bedside. awaiting psych evaluation and CTA. If CTA normal patient is cleared medically for DC Problem Qualifiers (1) Chest pain: Qualified Code: R07.9 - Chest pain, unspecified type (2) Depression: Qualified Code: F32.9 - Depression, unspecified depression type Camelia Ruiz MD Dec 22, 2016 08:25
--- NOTE | 2016-12-22 09:40 | PD.CARD.PN ---
Subjective Subjective Remarks patient continues to be symptom free this morning. denies chest pain, SOB or palpitations. resting comfortably. Objective Medications Current Medications Medications (Trade) Dose Ordered Sig/Alex Route Start Time Stop Time Status Last Admin (Tylenol) 650 mg Q4H PRN PO 12/21/16 00:00 (Zofran Inj) 4 mg Q6H PRN IVP 12/21/16 00:00 (Senokot) 17.2 mg Q12H PRN PO 12/21/16 00:00 (Narcan Inj) 0.4 mg UNSCH PRN IV 12/21/16 00:00 (NS Flush) 2 ml BID IV 12/21/16 09:00 12/22/16 08:06 (NS Flush) 2 ml UNSCH PRN IV 12/21/16 03:30 (Aspirin) 325 mg DAILY PO 12/21/16 09:00 12/22/16 08:06 (Tylenol) 500 mg Q4H PRN PO 12/21/16 03:30 ([place] 7.5-325 Mg) 1 tab Q4H PRN PO 12/21/16 03:30 (Protonix) 40 mg DAILY PO 12/21/16 09:00 12/22/16 08:06 (Xanax) 0.25 mg TID PRN PO 12/21/16 03:30 (Lopressor Inj) 5 mg Q5M PRN IV PUSH 12/21/16 16:45 Vital Signs / I&O Vital Signs Date Time Temp Pulse Resp B/P Pulse Ox O2 Delivery O2 Flow Rate FiO2 12/22/16 08:00 98.0 59 20 102/64 98 12/22/16 04:00 98.0 52 18 106/58 96 12/22/16 00:00 97.8 54 18 116/67 97 12/21/16 22:00 Room Air 12/21/16 22:00 55 12/21/16 20:00 97.7 71 20 129/69 98 12/21/16 16:00 98.2 59 18 110/55 100 12/21/16 15:15 Room Air 12/21/16 15:15 58 12/21/16 10:34 55 18 117/75 97 Nasal Cannula 2 I/O 12/21/16 12/21/16 12/21/16 12/22/1617 2/10/17 07:00 15:00 23:00 07:00 15:00 23:00 Intake Total 280 ml 280 ml Output Total 300 ml Balance -20 ml 280 ml Intake Oral 280 ml 280 ml Output Urine Total 300 ml # Voids 1 Physical Exam GENERAL: SKIN: Warm and dry. HEAD: Atraumatic. Normocephalic. . ENT: No nasal bleeding or discharge. NECK: Trachea midline. No JVD. CARDIOVASCULAR: Regular rate and rhythm. RESPIRATORY: No accessory muscle use. Clear to auscultation. Breath sounds equal bilaterally. GASTROINTESTINAL: Abdomen soft, non-tender, nondistended. MUSCULOSKELETAL: Extremities without clubbing, cyanosis, or edema. No obvious deformities. NEUROLOGICAL: Awake and alert. No obvious cranial nerve deficits Normal speech. PSYCHIATRIC: Appropriate mood and affect; insight and judgment normal. Laboratory Laboratory Tests Test 12/21/16 12/21/16 09:37 10:26 Total Creatine Kinase 172 U/L Troponin I LESS THAN 0.02 LESS THAN 0.02 NG/ML NG/ML Imaging Last Impressions Chest X-Ray 12/20/162003 Signed Impressions: Service Date/Time: Tuesday, December 20, 2016 18:39 - CONCLUSION: 1. No active disease. Calcified granulomata in the lungs. Magdiel Sauceda MD Assessment and Plan Problem List: (1) Chest pain Assessment and Plan 36 yo AAM admitted yesterday for new onset chest pain and suicidal ideation after starting risperdal medication for depression. Initial ECG showed dynamic T wave changes in precordial leads which has normalized. troponins negative. bradycardic with hypotension overnight (HR 52, SBP 102). feeling well and denies symptoms. CTA scheduled for today to evaluate for anomalous coronary arteries. if CTA negative he can be treated conservatively as symptoms likely due to Prinzmetal type angina exacerbated by risperdal. Problem Qualifiers (1) Chest pain: Qualified Code: R07.9 - Chest pain, unspecified type Ronel Ramirez Dec 22, 2016 09:40
--- NOTE | 2016-12-22 10:37 | EC ---
Study Study Date:12/21/2016 STUDY CONCLUSIONS SUMMARY - Left ventricle: The cavity size was normal. Wall thickness was normal. Systolic function was normal. The estimated ejection fraction was in the range of 55% to 60%. Wall motion was normal; there were no regional wall motion abnormalities. - Aortic valve: Valve area: 1.6cm^2(VTI). Valve area: 1.51cm^2 (Vmax). - Mitral valve: Mild regurgitation. - Right atrium: The atrium was mildly dilated. - Tricuspid valve: Mild regurgitation. If LV function is below 40, please consider prescribing an ACEI or ARB or document rationale for non-use. PROCEDURE DATA STUDY STATUS: Elective. Procedure: Transthoracic echocardiography. Image quality was good. Scanning was performed from the parasternal, apical, and subcostal acoustic windows. Study completion: The patient tolerated the procedure well. Transthoracic echocardiography. M-mode, complete 2D, complete spectral Doppler, and color Doppler. Height: Height: 66in. Weight: Weight: 155.7lb. Body mass index: BMI: 25.2kg/m^2. Body surface area: BSA: 1.8m^2. Patient status: Inpatient. CARDIAC ANATOMY LEFT VENTRICLE: The cavity size was normal. Wall thickness was normal. Systolic function was normal. The estimated ejection fraction was in the range of 55% to 60%. Wall motion was normal; there were no regional wall motion abnormalities. AORTIC VALVE: Trileaflet; normal thickness leaflets. Doppler: Transvalvular velocity was within the normal range. There was no stenosis. No regurgitation. Valve area: 1.6cm^2(VTI). Indexed valve area: 0.89cm^2/m^2 (VTI). Valve area: 1.51cm^2 (Vmax). Indexed valve area: 0.84cm^2/m^2 (Vmax). Mean gradient: 3mm Hg (S). AORTA: Aortic root: The aortic root was normal in size. MITRAL VALVE: Structurally normal valve. Doppler: Transvalvular velocity was within the normal range. There was no evidence for stenosis. Mild regurgitation. Peak gradient: 4mm Hg (D). LEFT ATRIUM: The atrium was normal in size. RIGHT VENTRICLE: The cavity size was normal. Wall thickness was normal. PULMONIC VALVE: Doppler: Transvalvular velocity was within the normal range. There was no evidence for stenosis. No regurgitation. TRICUSPID VALVE: Structurally normal valve. Doppler: Transvalvular velocity was within the normal range. Mild regurgitation. PULMONARY ARTERY: The main pulmonary artery was normal-sized. Systolic pressure was within the normal range. RIGHT ATRIUM: The atrium was mildly dilated. PERICARDIUM: There was no pericardial effusion. SYSTEMIC VEINS: Inferior vena cava: The vessel was normal in size. Patient weight: 155.7lb _Ejection fraction:_ 65-75% _Fractional shortening:_ 32% up to 5Kg 5-11.5Kg 11.6-22.9Kg 23-45Kg 45-57Kg Aortic Root 7-13 <17 13-22 17-27 17-27 LA diam 6-13 <23 24-38 33-47 37-40 RVID 10-17 7-15 7-15 7-18 8-17 LVIDd 12-22 <32 24-38 33-47 37-40 LVPW 2-4 3-6 5-7 6-8 7-8 IVS 2-4 3-6 5-7 6-8 7-8 BASIC MEASUREMENTS ADULT NORMAL Left ventricle LV internal dimension, ED, chordal 45.9 mm 43-52 level, PLAX LV internal dimension, ES, chordal 32.6 mm 23-38 level, PLAX Fractional shortening, chordal level, *29 % >29 PLAX LV posterior wall thickness, ED 9.99 mm IVS/LVPW ratio, ED 1 <1.3 Ventricular septum Septal thickness, ED 9.99 mm Aortic valve Leaflet separation 24 mm 15-26 Aorta Root diameter, ED 31 mm Left atrium Anterior-posterior dimension 26 mm Anterior-posterior dimension index 1.44 cm/m^2 <2.2 BASIC MEASUREMENTS ADULT NORMAL Aortic valve Leaflet separation 24 mm 15-26 DOPPLER MEASUREMENTS ADULT NORMAL Main pulmonary artery Pressure, S 21 mm Hg =30 Aortic valve Peak velocity, S 123 cm/s Mean velocity, S 88.2 cm/s VTI, S 23.2 cm Mean gradient, S 3 mm Hg Valve area, VTI 1.6 cm^2 Valve area index, VTI 0.89 cm^2/m^2 Valve area, Vmax 1.51 cm^2 Valve area index, Vmax 0.84 cm^2/m^2 Mitral valve Peak E-wave velocity 94.3 cm/s Peak A-wave velocity 57.3 cm/s Deceleration time *254 ms 150-230 Peak gradient, D 4 mm Hg Peak E/A ratio 1.6 Tricuspid valve Regurgitant peak velocity 205 cm/s Peak RV-RA gradient, S 17 mm Hg Maximal regurgitant velocity 205 cm/s Systemic veins Estimated CVP 5 mm Hg Right ventricle RV pressure, S 24 mm Hg <30 Pulmonic valve Peak velocity, S 80.5 cm/s LEGEND: Mean values are shown as u=mean value. Asterisk (*) mendez values outside specified normal range. Prepared and signed by Sukh Kang [id number]
[2016-12-22 12:00] VITALS: BP 117/59; PULSE 56; RESP 20; TEMP 97.9; O2SAT 98
[2016-12-22] MEDS ORDERED: IOHEXOL 350 MG/ML 10 ML VIAL (for RAD DIAG) IV ONE (14:48)
[2016-12-22 16:00] VITALS: BP 123/73; PULSE 53; RESP 20; TEMP 97.7; O2SAT 98
[2016-12-22 20:00] VITALS: BP 107/55; PULSE 52; RESP 20; TEMP 98; O2SAT 98
[2016-12-23] VITALS: BP 101/57; PULSE 53; RESP 20; TEMP 98; O2SAT 97
[2016-12-23 04:00] VITALS: BP 107/65; PULSE 51; RESP 20; TEMP 97.9; O2SAT 99
[2016-12-23 08:00] VITALS: BP 113/59; PULSE 56; RESP 20; TEMP 98.3; O2SAT 97
[2016-12-23] MEDS: PANTOPRAZOLE SOD 40 MG DELAYED RELEASE TAB PO SCH (08:41)
[2016-12-23] MEDS: ASPIRIN 325 MG TAB PO SCH (08:42)
--- NOTE | 2016-12-23 09:02 | HHI.DCPOC ---
Discharge Care Plan Goals to Promote Your Health * To prevent worsening of your condition and complications * To maintain your health at the optimal level Directions to Meet Your Goals Take your medications as prescribed Follow your dietary instruction Follow activity as directed Keep your appointments as scheduled Take your immunizations and boosters as scheduled If your symptoms worsen call your PCP, if no PCP go to Urgent Care Center or Emergency Room Smoking is Dangerous to Your Health. Avoid second hand smoke Call the 24-hour hour crisis hotline for domestic abuse at Camelia Ruiz MD Dec 23, 2016 09:01
[2016-12-23 10:00] VITALS: PULSE 53
--- NOTE | 2016-12-23 10:58 | PD.CONS ---
Provisional Diagnosis Admission Date Dec 20, 2016 at 22:31 [place] I. Major Depression, recurrent, w/o psychosis [place] II. deferred [place] III. denies [place] IV. homeless [place] V. 55 History of Present Illness Service Psychiatry Consult Requested By Primary Care Physician No Primary Care Physician HPI The patient is a 36-year-old man, homeless, single, unemployed , who recently moved to [place] from [place], with past psychiatric history of depression, multiple psychiatric hospitalizations, last hospitalization was 2 weeks ago and [facility] act, he has been on Risperdal 1 mg twice a day prescribing that institution, he has been seen in the ER a few times now for medication refill, he doesn't have any previous suicide attempts, medical history of hepatitis B and depression who presented with chest pain. The patient states that he took Risperdal as prescribed for him at [facility] [place] for the first time last night. He believes that he began experiencing side effects from the medication including chest pain and suicidal thoughts. He states shortly after taking the pill he began having chest pain for a few hours after taking the medication. He describes the pain as "a little pressure". Patient was now seen and cleared by cardiology. He was consulted to psychiatry due to suicidal ideation, he was not Mariano acted he wanted to be evaluated by psychiatry voluntarily. On psychiatric evaluation today patient was found calm and cooperative and pleasant. He says that he has been doing okay, was a little scared yesterday with his chest pain, but today feels optimally. He denies depressive symptoms, he denies anhedonia, he denies hopelessness, he denies helplessness, he denies suicidal or homicidal ideation. Patient says that he is recently moved to [place], he came to the state "because [place] was too cold", he has been looking for a job and looking to settle in the city. He was hospitalized in a store management and about 2 weeks ago for 2 days due to depressive symptoms. He was discharged with an outpatient appointment which he has been compliant with, he was discharged on Risperdal 1 mg twice a day. At this moment the patient denies anxiety, denies perceptual disturbances , denies visual and auditory hallucinations. Patient is fully oriented 3. He reports the use of marijuana, 2 or 2 times per week, denies use of alcohol denies use of other illicit drugs. Review of Systems Constitutional: DENIES: Diaphoretic episodes, Fatigue, Fever, Weight gain, Weight loss, Chills, Dizziness, Change in appetite, Night Sweats Endocrine: DENIES: Heat/cold intolerance, Polydipsia, Polyuria, Polyphagia Eyes: DENIES: Blurred vision, Diplopia, Eye inflammation, Eye pain, Vision loss , Photosensitivity, Double Vision Ears, nose, mouth, throat: DENIES: Tinnitus, Hearing loss, Vertigo, Nasal discharge, Oral lesions, Throat pain, Hoarseness, Ear Pain, Running Nose, Epistaxis, Sinus Pain, Toothache, Odynophagia Cardiovascular: DENIES: Chest pain, Palpitations, Syncope, Dyspnea on Exertion , PND, Lower Extremity Edema, Orthopnea, Claudication Gastrointestinal: DENIES: Abdominal pain, Black stools, Bloody stools, Constipation, Diarrhea, Nausea, Vomiting, Difficulty Swallowing, Anorexia Genitourinary: DENIES: Sexual dysfunction, Urinary frequency, Urinary incontinence, Urgency, Hematuria, Dysuria, Nocturia, Penile Discharge, Testicular Pain, Testicular Swelling Musculoskeletal: DENIES: Joint pain, Muscle aches, Stiffness, Joint Swelling, Back pain, Neck pain Integumentary: DENIES: Abnormal pigmentation, Nail changes, Pruritus, Rash Hematologic/lymphatic: DENIES: Bruising, Lymphadenopathy Immunologic/allergic: DENIES: Eczema, Urticaria Neurologic: DENIES: Abnormal gait, Headache, Localized weakness, Paresthesias, Seizures, Speech Problems, Tremor, Poor Balance Psychiatric: DENIES: Anxiety, Confusion, Mood changes, Depression, Hallucinations, Agitation, Suicidal Ideation, Homicidal Ideation, Delusions Past Family Social History Coded Allergies: No Known Allergies (Unverified , 12/14/16) Reported Medications Risperidone (Risperdal)4 Mg Tab5 Mg PO DAILY #30 TAB Ref 0 12/14/16 Last Impressions Chest X-Ray 12/20/162003 Signed Impressions: Service Date/Time: Tuesday, December 20, 2016 18:39 - CONCLUSION: 1. No active disease. Calcified granulomata in the lungs. Magdiel Sauceda MD Family History he denies Social History Patient was born and raised in [place], he just recently moved to [place] where he came from [place], he is homeless, single, unemployed, his highest level of education is seventh grade. Patient's Strengths (min. 2) Verbal communication Physical Exam Last Impressions Chest X-Ray 12/20/162003 Signed Impressions: Service Date/Time: Tuesday, December 20, 2016 18:39 - CONCLUSION: 1. No active disease. Calcified granulomata in the lungs. Magdiel Sauceda MD Vital Signs Vital Signs Date Time Temp Pulse Resp B/P Pulse Ox O2 Delivery O2 Flow Rate FiO2 12/23/16 08:00 98.3 56 20 113/59 97 12/22/16 21:17 Room Air 12/21/16 10:34 2 I/O 12/22/16 12/22/16 12/23/16 08:00 16:00 00:00 Intake Total 280 ml 720 ml 360 ml Balance 280 ml 720 ml 360 ml Mental Status Examination Appearance AA young man, multiple visible tattoos, malodorous, age appropriate, Calm, cooperative and pleasant Speech: Unremarkable Orientation: x3 Memory: Unremarkable Thought Process: Logical Thought Content: Unremarkable Hallucination Type: None Suicidal Ideation: No Previous Suicide Attempts: No Homicidal Ideation: No Previous Homicide Attempts: No Insight: Good Affect: Good Mood: Appropriate Motor Activity: Normal gait Assessment & Plan Problem List: (1) Depression Assessment & Plan: At the moment of the psychiatric evaluation the patient does not present any objective or subjective symptomatology of depression, anxiety, chiki, perceptual disturbances. Patient is calm, cooperative pleasant , with a good sense of humor, logical coherent and relevant. He denies suicidal or homicidal ideation, he denies visual and auditory hallucinations. No gross cognitive impairment observed. Patient does not meet criteria for psychiatric admission at this moment. He can continue his psychiatric care as an outpatient is [facility]. Continue his Risperdal 1 mg twice a day as was prescribing outpatient. Support, motivation and psychoeducation provided. Consult appreciated. ICD Code: F32.9 Assessment & Plan Estimated LOS: days Problem Qualifiers (1) Depression: Qualified Code: F33.41 - Recurrent major depressive disorder, in partial remission Barrie Lang MD Dec 23, 2016 10:58
--- NOTE | 2016-12-26 08:08 | RADRPT ---
EXAM DATE/TIME: 12/22/2016 14:33 [place] COMPARISON: No previous studies available for comparison. INDICATIONS : Chest pain, evaluate for obstruction or any anomalous coronary. IV CONTRAST: 100 cc Omnipaque 350 (iohexol) IV RADIATION DOSE: 3.48 CTDIvol (mGy) MEDICAL HISTORY : Hepatitis B. SURGICAL HISTORY : None. ENCOUNTER: Initial ACUITY: 2 days PAIN SCALE: 0/10 LOCATION: chest TECHNIQUE: Volumetric scanning was obtained through the heart. Images were acquired on a multislice multiple ro w detector helical scanner timed for acquisition during peak arterial contrast. Images were reconstr ucted using a retrospective gating algorithm including single sector and multi-sector algorithms at m ultiple phases of the cardiac cycle. Images were interpreted using a combination of 2D and 3D visual ization modes including curved planar reformation, thin slab maximum intensity projection and volume rendering. Using automated exposure control and adjustment of the mA and/or kV according to patient size, radiation dose was kept as low as reasonably achievable to obtain optimal diagnostic quality im ages. FINDINGS: VESSEL ANALYSIS: DOMINANCE: The coronary system is left dominant. LEFT MAIN: Normal vessel without calcification or stenosis. LAD: Normal vessel without calcification or stenosis. CIRCUMFLEX: Normal vessel without calcification or stenosis. RCA: Normal vessel without calcification or stenosis. OTHER: None. CONCLUSION: Normal examination. Jose Groves MD on December 26, 2016 at 8:03 Board Certified Radiologist. This report was verified electronically.
--- NOTE | 2017-02-02 19:43 | HHI.DS ---
Discharge Summary Admission Date Dec 20, 2016 at 22:31 Discharge Date: Jan 20, 2017 Admitting Diagnosis chest pain,depression (1) Chest pain ICD Code: R07.9 Diagnosis: Principal (2) Depression ICD Code: F32.9 Diagnosis: Principal (3) Suicidal ideation ICD Code: R45.851 Diagnosis: Principal Procedures none Brief History - From Admission 36-year-old male with past medical history of hepatitis B and depression who presented with chest pain. The patient states that he took Risperdal as prescribed for him at [facility] for the first time last night. He believes that he began experiencing side effects from the medication including chest pain and suicidal thoughts. He states shortly after taking the pill he began having chest pain for a few hours after taking the medication. He describes the pain as "a little pressure". He had associated shortness of breath. The pain did not radiate and he did not have any nausea or diaphoresis. He states the pain resolved spontaneously and has not recurred. He does continue to feel suicidal thoughts. He is agreeable to stay to talk to a psychiatrist. He denies any vomiting, fever, chills, cough, abdominal pain. Imaging Last Impressions Coronary Angiography CT 12/21/16 0000 Signed Impressions: Service Date/Time: Thursday, December 22, 2016 14:33 - CONCLUSION: Normal examination. Jose Groves MD Chest X-Ray 12/20/162003 Signed Impressions: Service Date/Time: Tuesday, December 20, 2016 18:39 - CONCLUSION: 1. No active disease. Calcified granulomata in the lungs. Magdiel Sauceda MD PE at Discharge GENERAL: Well-developed well-nourished. In no acute distress. SKIN: Warm and dry. No lesions noted. HEENT: Normocephalic. Pupils equal and round. Mucous membranes pink and moist. CARDIOVASCULAR: Regular rate and rhythm. No murmur appreciated. RESPIRATORY: No accessory muscle use. Clear to auscultation. Breath sounds equal bilaterally. GASTROINTESTINAL: Abdomen soft, non-tender, nondistended. Bowel sounds x4. MUSCULOSKELETAL: No obvious deformities. No clubbing or cyanosis. No edema. NEUROLOGICAL: Awake and alert. No focal neurological deficits. Moves upper and lower extremities spontaneously. Normal speech. PSYCHIATRIC: Appropriate mood and affect; insight and judgment normal. Expresses SI. Pt update on day of discharge No events/ complaints. Hospital Course 36-year-old male with past medical history of hepatitis B and depression who presented with chest pain Atypical chest pain: Doubt ACS. Troponin negative 5. EKG personally reviewed , shows LVH and nonspecific ST changes and anterior lateral leads. Possible underlying cardiomyopathy. Check echocardiogram. Consult cardiology. Patient started on aspirin. No beta vannessa with bradycardia. Had CTA w/ coronary arteries. Seen by Dr Neff cardiology appreciate recommendations. If CTA is normal, treat conservatively from cardiac standpoint , patient is at very low risk. CTA normal. Suicidal ideation: Possible side effects from Risperdal, hold for now. Consult psychiatry. Patient agrees to voluntarily stay for psychiatric evaluation, no need to Mariano act for now, but patient referred to leave prior to psychiatry evaluation would need to reconsider that. Seen by psychiatry recommends follow up as OP with psych/ SMA. DVT prophylaxis: SCDs Patient improved, he was DC in good condition to follow up as OP with PCP and consultants. Pt Condition on Discharge: Good Discharge Disposition: Discharge Home Discharge Time: <= 30 minutes Discharge Instructions DIET: Follow Instructions for: As Tolerated, No Restrictions Activities you can perform: Regular-No Restrictions Follow up Referrals: PCP Follow-up - 3-5 Days Continued Medications: Risperidone (Risperdal) 4 Mg Tab 4 MG PO HS TAB Camelia Ruiz MD Feb 02, 2017 19:43
== END 2016-12-23 10:17 | disposition home or self-care (01) ==
LOC: NEPC 19:54 → NEDA 22:31 → NEDH 12-21 02:59 → N04B 12-21 14:38
PROVIDERS: ADMIT Hospitalist; ATTEND Hospitalist
DX: R07.9 Chest pain, unspecified (principal); F33.41 Major depressive disorder, recurrent, in partial remission; F12.90 Cannabis use, unspecified, uncomplicated; F17.210 Nicotine dependence, cigarettes, uncomplicated; R94.31 Abnormal electrocardiogram [ECG] [EKG]; R45.851 Suicidal ideations; B19.10 Unspecified viral hepatitis B without hepatic coma
CPT/HCPCS: 71010; 75574; 80048; 80053; 80307; 80320; 82550; 83735; 84484; 85025; 85610; 85730; 93005; 93306; 99285; G0378; J1644; J1650; J7030; Q9967

== ENCOUNTER 2017-01-03 19:52 | Inpatient (IN) | payer MEDICAID, OTHER ==
[~2017-01-03] VITALS: Ht 167.6 cm; Wt 67.6 kg
[2017-01-03 20:10] VITALS: BP 144/72; PULSE 78; RESP 14; TEMP 98.7; O2SAT 100
[2017-01-03 20:30] LABS: AUTOMATED NEUTROPHIL # 4.8 TH/MM3 (1.8-7.7); BASOPHIL % 0.4 % (0.0-2.0); EOSINOPHIL % 0.7 % (0.0-4.0); HEMATOCRIT 32.1 % (39.0-51.0); HEMO FLAGS DIFF FINAL; LYMPH % 12.5 % (9.0-44.0); LYMPHOCYTE # 0.8 TH/MM3 (1.0-4.8); MEAN CELL VOLUME 84.6 FL (80.0-100.0); MEAN CORPUSCULAR HEMOGLOBIN 29.2 PG (27.0-34.0); MEAN CORPUSCULAR HGB CONC 34.5 % (32.0-36.0); MONO % 12.9 % (0.0-8.0); NEUT % 73.5 % (16.0-70.0); PLATELET COUNT 249 TH/MM3 (150-450); RED BLOOD COUNT 3.79 MIL/MM3 (4.50-5.90); RED CELL DISTRIBUTION WIDTH 14.6 % (11.6-17.2); WHITE BLOOD COUNT 6.5 TH/MM3 (4.0-11.0)
[2017-01-03 21:16] LABS: ANION GAP 5 MEQ/L (5-15); BICARBONATE 29.8 MEQ/L (21.0-32.0); BLOOD UREA NITROGEN 7 MG/DL (7-18); CHLORIDE 103 MEQ/L (98-107); GLOMERULAR FILTRATION RATE 97 ML/MIN (>89); POTASSIUM 3.5 MEQ/L (3.5-5.1); SODIUM (NA) 138 MEQ/L (136-145)
[2017-01-03 21:19] LABS: ALKALINE PHOSPHATASE 87 U/L (45-117); ALT (GPT) 21 U/L (12-78); AST (GOT) 18 U/L (15-37); TOTAL BILIRUBIN ADULT 0.3 MG/DL (0.2-1.0)
--- NOTE | 2017-01-03 21:30 | PD ---
HPI Chief Complaint: Suicide Ideation/Attempt Time Seen by Provider: 21:30 Travel History International Travel<30 days: No Contact w/Intl Traveler<30days: No Traveled to known affect area: No History of Present Illness HPI 36-year-old male with a history of depression and bipolar disorder is brought to the emergency department under Mariano act for suicidal ideations. Per the Mariano act report the patient is homeless and is "tired of living this way" and wants to end his life. The patient states that he typically takes Seroquel and Risperdal but has been out of his medications for 5 days. He denies any medical complaints. Denies any chest pain, shortness of breath, abdominal pain , nausea, vomiting, diarrhea, lightheadedness, cough or cold symptoms. Denies any ingestion of substances or attempts to harm himself. Denies alcohol or drug use. No other complaints. PFSH Past Medical History Medical History: Denies Significant Hx Anxiety: No Depression: No Cancer: No Cardiovascular Problems: No Diminished Hearing: No Endocrine: No Genitourinary: No Hepatitis: Yes (b) Immune Disorder: No Musculoskeletal: No Neurologic: No Psychiatric: Yes (bipolar, schizophrenia) Reproductive: No Respiratory: No Tetanus Vaccination: < 5 Years Influenza Vaccination: No Past Surgical History Surgical History: No Previous Surgery Social History Alcohol Use: No Tobacco Use: Yes (5 CIGS/DAY) Substance Use: Yes (marijuana) Allergies-Medications (Allergen,Severity, Reaction): Coded Allergies: No Known Allergies (Unverified , 12/14/16) Reported Meds & Prescriptions Reported Meds & Active Scripts Active Reported Risperdal (Risperidone) 4 Mg Tab 5 Mg PO DAILY Review of Systems Except as stated in HPI: all other systems reviewed are Neg Physical Exam Narrative GENERAL: Well-nourished and well-developed pleasant male patient in no acute distress who is nontoxic appearing. SKIN: Warm and dry. HEAD: Normocephalic and atraumatic. EYES: No injection, drainage, or hyphema noted. PERRLA. EOMI. ENT: No nasal drainage noted. Oropharynx is clear. NECK: Supple and the trachea is midline. CARDIOVASCULAR: Regular rate and rhythm. RESPIRATORY: Breath sounds are equal bilaterally with no accessory muscle use, wheezing, rhonchi, or crackles. GASTROINTESTINAL: Abdomen is soft, non-tender, and nondistended. MUSCULOSKELETAL: No obvious deformities, swelling, cyanosis, or ecchymosis is present throughout the upper and lower extremities. Patient has full range of motion without any signs of neurovascular compromise. NEUROLOGICAL: Awake, alert, and oriented. Normal speech and gait. Cranial nerves are grossly intact. Data Data Last Documented VS Vital Signs Date Time Temp Pulse Resp B/P Pulse Ox O2 Delivery O2 Flow Rate FiO2 01/03/17 20:16 14 01/03/17 20:10 98.7 78 144/72 100 Orders Complete Blood Count With Diff (01/03/17 20:15) Comprehensive Metabolic Panel (01/03/17 20:15) Psych Screen (01/03/17 20:15) Drug Screen, Random Urine (01/03/17 20:15) Alcohol (Ethanol) (01/03/17 20:15) Labs Laboratory Tests Test 01/03/17 20:20 White Blood Count 6.5 TH/MM3 Red Blood Count 3.79 MIL/MM3 Hemoglobin 11.1 GM/DL Hematocrit 32.1 % Mean Corpuscular Volume 84.6 FL Mean Corpuscular Hemoglobin 29.2 PG Mean Corpuscular Hemoglobin 34.5 % Concent Red Cell Distribution Width 14.6 % Platelet Count 249 TH/MM3 Mean Platelet Volume 7.6 FL Neutrophils (%) (Auto) 73.5 % Lymphocytes (%) (Auto) 12.5 % Monocytes (%) (Auto) 12.9 % Eosinophils (%) (Auto) 0.7 % Basophils (%) (Auto) 0.4 % Neutrophils # (Auto) 4.8 TH/MM3 Lymphocytes # (Auto) 0.8 TH/MM3 Monocytes # (Auto) 0.8 TH/MM3 Eosinophils # (Auto) 0.0 TH/MM3 Basophils # (Auto) 0.0 TH/MM3 CBC Comment DIFF FINAL Differential Comment Sodium Level 138 MEQ/L Potassium Level 3.5 MEQ/L Chloride Level 103 MEQ/L Carbon Dioxide Level 29.8 MEQ/L Anion Gap 5 MEQ/L Blood Urea Nitrogen 7 MG/DL Creatinine 1.05 MG/DL Estimat Glomerular Filtration 97 ML/MIN Rate Random Glucose 95 MG/DL Calcium Level 8.3 MG/DL Total Bilirubin 0.3 MG/DL Aspartate Amino Transf 18 U/L (AST/SGOT) Alanine Aminotransferase 21 U/L (ALT/SGPT) Alkaline Phosphatase 87 U/L Total Protein 7.0 GM/DL Albumin 3.4 GM/DL Ethyl Alcohol Level LESS THAN 3 MG/DL MDM Medical Decision Making Medical Screen Exam Complete: Yes Emergency Medical Condition: Yes Differential Diagnosis Differential: Depression versus adjustment reaction versus anxiety versus PTSD versus psychosis NOS versus mood disorder NOS versus substance induced mood disorder versus ODD versus adjustment reaction versus schizophrenia versus bipolar disorder versus schizoaffective versus electrolyte abnormality versus malingering. Narrative Course Patient presents under a Mariano act. Physical examination and vital signs are essentially unremarkable. Patient has no medical complaints to report. Psych screen has been ordered. The laboratory results are unremarkable for any acute abnormalities. The patient is medically cleared for psychiatric evaluation and disposition. Diagnosis Primary Impression: Depression Qualified Code: F32.9 - Depression, unspecified depression type Sindhu Moses Jan 03, 2017 21:30
[2017-01-04 06:10] LABS: AMPHETAMINE, URINE NEG (NEG); BARBITURATES, URINE NEG (NEG); COCAINE, URINE NEG (NEG)
[2017-01-04 08:20] VITALS: BP 118/75; PULSE 57; RESP 18; O2SAT 96
[2017-01-04] MEDS ORDERED: ACETAMINOPHEN 325 MG TAB PO PRN (14:00)
[2017-01-04] MEDS ORDERED: LORazepam 1 MG TAB PO PRN (14:00)
[2017-01-04] MEDS ORDERED: MAGNESIUM HYDROXIDE SUSP 30 ML CUP PO PRN (14:00)
[2017-01-04] MEDS ORDERED: LORazepam 0.5 MG TAB PO PRN (14:00)
[2017-01-04] MEDS ORDERED: LORazepam 2 MG/ML VIAL IM PRN ×2 (14:00)
[2017-01-04] MEDS ORDERED: ALUMINUM/MAGNESIUM/SIMETH 30 ML CUP PO PRN (14:00)
[2017-01-04 15:00] VITALS: BP 127/82; PULSE 68; RESP 18; TEMP 98.5; O2SAT 99
[2017-01-05 06:08] VITALS: BP 104/74; PULSE 67; RESP 18; TEMP 98.7; O2SAT 96
[2017-01-05] MEDS ORDERED: REMOVE OLD PATCH T-DERMAL SCH (09:00)
[2017-01-05] MEDS ORDERED: NICOTINE 21 MG/24 HR PATCH T-DERMAL SCH (09:00)
[2017-01-05 09:08] LABS: ANION GAP 7 MEQ/L (5-15); BICARBONATE 24.9 MEQ/L (21.0-32.0); BLOOD UREA NITROGEN 9 MG/DL (7-18); CHLORIDE 102 MEQ/L (98-107); GLOMERULAR FILTRATION RATE 133 ML/MIN (>89); SODIUM (NA) 134 MEQ/L (136-145)
[2017-01-05 09:11] LABS: HDL CHOLESTEROL 46.2 MG/DL (40.0-60.0); LDL CHOLESTEROL 68 MG/DL (0-99)
--- NOTE | 2017-01-05 09:14 | HHI.HP ---
Provisional Diagnosis Admission Date Jan 04, 2017 at 13:59 [place] I. 1. Malingering for jail 2. Cannabis abuse 3. Reported history of depression and schizophrenia, presently stable [place] II. Deferred [place] V. GAF is 60 presently Certification of Person's Competence To Provide Express and Informed Consent I have personally examined Clive Javier , a person being served at [facility] on, Jan 05, 2017 09:14. Express and informed consent means consent voluntarily given in writing, by a competent person, after sufficient explanation and disclosure of the subject matter involved to enable the person to make a knowing and willful decision without any element of force, fraud, deceit, duress, or other form of constraint or coercion. This person is 18 years of age or older, is not now known to be incompetent to consent to treatment with a guardian advocate, and does not have a health care surrogate or proxy currently making medical treatment decisions. I have found this person to be one of the following: [x] Competent to provide express and informed consent, as defined above, for voluntary admission to this facility and is competent to provide express and informed consent for treatment. He/she has the consistent capacity to make well reasoned, willful, and knowing decisions concerning his or her medical or mental health treatment. The person fully and consistently understands the purpose of the admission for examination/placement and is fully capable of personally exercising all rights assured under [place] Incompetent to provide express and informed consent to voluntary admission, and this is incompetent to provide express and informed consent to treatment. The person must be transferred to involuntary status and a petition for a guardian advocate filed with the Circuit Court. [] Refusing to provide express and informed consent to voluntary admission but is competent to provide express and informed consent for treatment. The person must be discharged or transferred to involuntary status. Form shall be completed within 24 hours of a person's arrival at the receiving facility and filed in the clinical record of each person: 1. Admitted on a voluntary basis 2. Permitted to provide express and informed consent to his/her own treatment 3. Allowed to transfer from involuntary to voluntary status 4. Prior to permitting a person to consent to his or her own treatment after having been previously found incompetent to consent to treatment. History of Present Illness Capacity: Has Capacity HPI Mr. Javier is a 36-year-old male with reported history of depression and schizophrenia who presented to the ED under a Mariano act alleging suicidal threat. Reviewing the electronic medical record, I note the patient was seen in consultation about [address] Lang in the clinical decision unit and was determined not to be criteria for inpatient psychiatric hospitalization at that time. Patient seen and examined with counselor. Chart reviewed. Case discussed with nursing staff. There has been no evidence of any suicidality or homicidality on the inpatient unit. On my examination today the patient is calm and pleasant. His thought process is linear and organized. He says "what I really need is somewhere to stay. I need a bus ticket to [place]. I been out there homeless and it been raining." He says he had himself Mariano Acted to get out of the rain. "It was raining, and I didn't have nowhere to go, and I was scared it might be lightning, and so I say go to the hospital." He denies any suicidal or homicidal ideation at this time. He denies any auditory or visual hallucinations and I can elicit no paranoia, no ideas of reference, no feelings of thought insertion or withdrawal or grandiosity. No other delusional material. Mood is fair, and I can elicit no depressive or hypomanic/manic symptoms. The remainder of the psychiatric ROS is negative. The patient is requesting discharge from the inpatient psychiatric unit today as he says he plans to meet up with outpatient case assistant at the [facility] because she has promised to help him get back to [place]. Past psychiatric history: Patient reports a history of depression and schizophrenia. He says that he has been prescribed Risperdal and Seroquel in the past. He has apparently received psychiatric services on an outpatient basis at [facility] and also has had some admissions at [facility]. He reports 1 prior remote suicide attempt in which he tried to drink himself to . Family history: Patient reports his mother struggled with depression. Chemical dependency history: Patient reports he occasionally smokes cannabis. He also smokes half a pack a day of cigarettes. Denies any other substance use. Social history: Patient came down from [place] a month ago because "I thought I could come down here and get an apartment." He is presently homeless. He is single and has an 39-ldmcy-ays daughter who lives with her mother in [place]. He has a seventh grade education. He gets a disability income but says that the amount has been reduced because he is homeless and now he receives about $ 449 a month. He denies any or legal history. No specific temple or spiritual beliefs. No access to guns or firearms. Review of Systems Other No reported headache, vision or hearing changes, chest pain, shortness of breath , bowel or bladder issues. No other physical complaints. Past Psych History Psychological trauma history No reported trauma history to al Violence risk - others (6 mos) Lower imminent risk. No known history of violence. Denies homicidal ideation. No evidence of any unstable mood, anxiety or psychotic disorder that might contribute to risk for violence. Violence risk - self (6 mos) Lower imminent risk. Patient denies suicidal ideation. No recent suicide attempts. No family history of suicide. No access to guns or firearms. Future oriented with goal of getting back to [place]. No evidence of any unstable mood, anxiety or psychotic disorder that might contribute to risk for suicide. Substance Abuse History Drugs/Alcohol past 12 months See above Past Family Social History Coded Allergies: No Known Allergies (Unverified , 01/04/17) Past Medical History See electronic medical record. Reported Medications Risperidone (Risperdal)4 Mg Tab4 Mg PO HS 12/14/16 Current Medications Medications (Trade) Dose Ordered Sig/Alex Route Start Time Stop Time Status Last Admin (Ativan) 1 mg Q6H PRN PO 01/04/17 14:00 (Ativan Inj) 1 mg Q6H PRN IM 01/04/17 14:00 (Tylenol) 650 mg Q4H PRN PO 01/04/17 14:00 (Milk Of Magnesia Liq) 30 ml DAILY PRN PO 01/04/17 14:00 (Mag-Al Plus Susp Liq) 30 ml Q6H PRN PO 01/04/17 14:00 (Habitrol 21 Mg Patch.24 Hr) 1 patch DAILY T-DERMAL 01/05/17 09:00 01/05/17 08:53 Miscellaneous Information 1 DAILY T-DERMAL 01/05/17 09:00 Patient's Strengths (min. 2) Maintaining basic hygiene. Verbally fluent. Physical Exam Physical examination completed by ED provider. On my examination today, patient is well-nourished and well-developed. He is in no acute physical distress. I do note that he is sweating profusely, but there is no evidence of any withdrawal or toxidrome otherwise. No abnormal motor movements noted. Steady gait and station. Labs and vital signs reviewed. Vital Signs Vital Signs Date Time Temp Pulse Resp B/P Pulse Ox O2 Delivery O2 Flow Rate FiO2 01/05/17 06:08 98.7 67 18 104/74 96 01/04/17 08:20 Room Air I/O 01/04/17 01/04/17 01/05/17 08:00 16:00 00:00 Output Total 50 ml Balance -50 ml Lab Results Item Value Date Time White Blood Count 6.5 TH/MM3 01/03/172019 Hemoglobin 11.1 GM/DL L 01/03/172019 Platelet Count 249 TH/MM3 01/03/172019 Sodium Level 134 MEQ/L L 01/05/17 0737 Potassium Level 4.0 MEQ/L 01/05/17 0737 Chloride Level 102 MEQ/L 01/05/17 0737 Carbon Dioxide Level 24.9 MEQ/L 01/05/17 0737 Anion Gap 7 MEQ/L 01/05/17 0737 Blood Urea Nitrogen 9 MG/DL 01/05/17 0737 Creatinine 0.80 MG/DL 01/05/17 0737 Estimat Glomerular Filtration Rate 133 ML/MIN 01/05/17 0737 Aspartate Amino Transf (AST/SGOT) 18 U/L 01/03/172019 Alanine Aminotransferase (ALT/SGPT) 21 U/L 01/03/172019 Alkaline Phosphatase 87 U/L 01/03/172019 Urine Cannabinoids Screen POS H 01/04/17 0500 Ethyl Alcohol Level LESS THAN 3 MG/DL 01/03/172019 Mental Status Examination Patient is in hospital gown. He is fairly well groomed and maintaining basic hygiene. He is awake and alert and oriented 3. No evidence of delirium. No abnormal motor movements noted. Speech is within normal limits for rate, tone and volume. Language and fund of knowledge seem average. Mood is fair and affect is full and reactive. Thought process linear. No loosening of associations. No evident delusions. Denies audiovisual hallucinations. Denies suicidal or homicidal ideation. Insight and judgment are fair. Assessment & Plan Problem List: (1) Malingering ICD Code: Z76.5 (2) Cannabis abuse ICD Code: F12.10 Assessment & Plan This is a 36-year-old male with psychiatric history as detailed above who presents under a Mariano act. Patient admits that he malingered the threats in the Mariano act to facilitate admission to the inpatient psychiatric unit for jail as it was raining and he is homeless. He denies any suicidal or homicidal ideation at this time. He appears to be attending to his basic needs. There is no evidence of any unstable mood, anxiety or psychotic disorder in this patient at this time. Weighing the acute , chronic, and protective factors and based on the available evidence, I supreme court judge to a reasonable degree of medical certainty that the patient is at low imminent risk of harm to self or others from a mental illness as defined under the Mariano act and his level of function is adequate for outpatient care. The patient does not meet Mariano act criteria at this time and is requesting discharge from the hospital today and so I will arrange for his discharge to self in stable condition. I have recommended that he follow-up at [facility] for mental health care and also with his primary care doctor. I have counseled the patient to return to the psychiatric emergency room for any concerning psychiatric symptoms. I have provided him with no prescriptions on discharge. Please note this document serves also has my discharge summary. Discharge Planning Discharged today per patient preference. Mariano act lifted Request HC Surrog/Guard Advoc?: No Be Segovia MD Jan 05, 2017 09:14
[2017-01-05 15:53] LABS: HEMOGLOBIN A1a 1.2 %; HEMOGLOBIN A1b 0.8 %; HEMOGLOBIN Ao 85.8 %; HEMOGLOBIN F 0.8 %; HEMOGLOBIN LA1C 1.7 %; HEMOGLOBIN P3 3.5 %
== END 2017-01-05 13:40 | disposition left against medical advice (07) | DRG 885 ==
LOC: NEPA 19:52 → NEDA 01-04 13:59 → H270 01-04 15:05
PROVIDERS: ADMIT Psychiatry & Neurology Psychiatry; ATTEND Psychiatry & Neurology Psychiatry
DX: F31.9 Bipolar disorder, unspecified (principal); R45.851 Suicidal ideations; B19.10 Unspecified viral hepatitis B without hepatic coma; F20.9 Schizophrenia, unspecified; F12.10 Cannabis abuse, uncomplicated; Z59.0 Homelessness; F17.200 Nicotine dependence, unspecified, uncomplicated; Z76.5 Malingerer [conscious simulation]
CPT/HCPCS: 80048; 80053; 80061; 80307; 80320; 83036; 85025; 99284